=== PATIENT | male | born 1975 | race Caucasian/White ===

== ENCOUNTER 2016-09-23 12:28 | Emergency (ER) | payer OTHER ==
[~2016-09-23] VITALS: Ht 172.7 cm; Wt 71.2 kg
[~2016-09-23 12:28] MED LIST: ATARAX,VISTARIL25 MG PO; MEDROL DOSEPAK4 MG PO; PEPCID20 MG PO
[2016-09-23] MEDS ORDERED: ZUBSOLV 5.7-1.1 EACH SL (13:15)
[2016-09-23] MEDS ORDERED: LIDODERM 5% P1 PATCH TD (15:23)
[2016-09-23] MEDS ORDERED: BACLOFEN10 MG PO (15:23)
[2016-09-23 15:35] VITALS: BP 105/73
== END 2016-09-23 15:35 | disposition home or self-care (01) ==
LOC: EME 12:28
DX: M46.1 Sacroiliitis, not elsewhere classified (principal); M24.151 Other articular cartilage disorders, right hip; M54.5 Low back pain; G89.29 Other chronic pain; F11.20 Opioid dependence, uncomplicated; F17.200 Nicotine dependence, unspecified, uncomplicated
CPT/HCPCS: 72202; 99281; 99284